=== PATIENT | female | born 1970 | race Caucasian/White ===

== ENCOUNTER 2018-03-09 18:37 | Emergency (ER) | payer SELFPAY ==
[~2018-03-09] VITALS: Ht 167.6 cm; Wt 85.3 kg
[2018-03-09] MEDS ORDERED: CYCLOBENZAPRINE HCL 10 MG TAB PO ONE (19:00)
[2018-03-09] MEDS ORDERED: HYDROCODONE/APAP 5MG-325MG TAB PO ONE (19:00)
[2018-03-09 19:48] VITALS: BP 122/75
== END 2018-03-09 20:03 | disposition home or self-care (01) ==
LOC: FSED 18:37
DX: S00.83XA Contusion of other part of head, initial encounter (principal); M54.2 Cervicalgia; S16.1XXA Strain of muscle, fascia and tendon at neck level, initial encounter; M54.12 Radiculopathy, cervical region; W01.0XXA Fall on same level from slipping, tripping and stumbling without subsequent striking against object, initial encounter; Y93.01 Activity, walking, marching and hiking; Y92.008 Other place in unspecified non-institutional (private) residence as the place of occurrence of the external cause
CPT/HCPCS: 70450; 72125; 99283